=== PATIENT | male | born 1955 | race African-American/Black ===

== ENCOUNTER 2025-06-09 06:49 | Emergency (ER) | payer MEDICARE, MEDICAID ==
[~2025-06-09] VITALS: Ht 195.6 cm; Wt 99.1 kg
[~2025-06-09 06:49] MED LIST: ASPI-864 PO; GEMF600T90 PO; TAMS0.4C31 PO
[2025-06-09 06:51] VITALS: O2SAT 100
[2025-06-09 08:27] VITALS: BP 102/69; PULSE 79; RESP 18; TEMP 36.8; O2SAT 97
[2025-06-09] MEDS: IBUPROFEN 600MG TABLET PO ONE (08:55)
[2025-06-09] MEDS ORDERED: CEPH500T MT (09:02)
[2025-06-09] MEDS ORDERED: IBUP-1455 MT (09:02)
== END 2025-06-09 08:55 | disposition home or self-care (01) ==
LOC: ER 06:49
DX: S83.91XA Sprain of unspecified site of right knee, initial encounter (principal); S09.8XXA Other specified injuries of head, initial encounter; M25.561 Pain in right knee; L03.90 Cellulitis, unspecified; F20.9 Schizophrenia, unspecified; G31.9 Degenerative disease of nervous system, unspecified; I67.82 Cerebral ischemia; Z79.82 Long term (current) use of aspirin; Z93.3 Colostomy status; W19.XXXA Unspecified fall, initial encounter; Y93.89 Activity, other specified; Y92.89 Other specified places as the place of occurrence of the external cause; Y99.8 Other external cause status
CPT/HCPCS: 73502; 73562; 99284